=== PATIENT | female | born 1995 | race Caucasian/White ===

== ENCOUNTER 2017-03-01 12:08 | Emergency (ER) | payer OTHER ==
[2017-03-01] MEDS ORDERED: NS 0.9% 1000 ML* 1,000 ML BOLUS SCH (14:15)
[2017-03-01 14:46] LABS: Hematocrit 42 % (35-47); Hemoglobin 13.8 g/dl (12.0-16.0); Mean Corpuscular HGB Conc 33 g/dl (31-36); Mean Corpuscular Hemoglobin 29 pg (27-31); Mean Corpuscular Volume 86 fL (80-97); Mean Platelet Volume 10 um3 (7.4-10.4); Red Blood Count 4.82 10^6/ul (4.0-5.4); Red Cell Distribution Width 13 % (10.5-15); White Blood Count 17.5 10^3/ul (3.5-10.8)
[2017-03-01 15:07] LABS: Albumin 3.9 g/dL (3.2-5.2); BUN/Creatinine Ratio 10.4 (8-20); EGFR African American 140.3 (>60); EGFR Non-African American 109.1 (>60); Globulin 3.6 g/dL (2-4); Potassium 3.6 mmol/L (3.5-5.0); Total Bilirubin 1.7 mg/dL (0.2-1.0); Total Protein 7.5 g/dL (6.4-8.9)
[2017-03-01 15:32] LABS: Urine Bacteria Absent (Absent); Urine Bilirubin Negative (Negative); Urine Glucose Negative (Negative); Urine Nitrite Positive (Negative)
[2017-03-01] MEDS ORDERED: Ketorolac INJ* 30 MG/ML 1 ML VIAL IV PUSH ONE (15:41)
[2017-03-01] MEDS ORDERED: Iohexol 300* (CONTRAST) 10 ML SDV IV ONE (16:00)
--- NOTE | 2017-03-01 17:02 | RAD ---
INDICATION: Evaluate for perineal abscess COMPARISON: CT August 23, 2015 TECHNIQUE: Axial source images were obtained from the hemidiaphragms to the symphysis pubis following administration of oral and intravenous contrast. 105 mL Omnipaque 300 was utilized. Coronal and sagittal reconstructed images were acquired. Lung bases: The lung bases are clear. Liver: The liver is normal in size. There are no masses. There is no ductal dilatation. Gallbladder: There are no calcified gallstones. There is no evidence of wall thickening or pericholecystic fluid. Spleen: The spleen is normal in size. There are no masses. Pancreas: There is no focal pancreatic mass or ductal dilatation. Adrenal glands: There is no evidence of adrenal mass. Kidneys: The kidneys are normal in size and position. There are prompt nephrograms and there is prompt excretion bilaterally. There are no renal parenchymal masses. There is no evidence of nephrolithiasis. Adenopathy: There is no evidence of adenopathy by size criteria. Fluid collections: There are no free or localized fluid collections. Vessels:There are no significant atherosclerotic changes involving the aorta. There is no focal aneurysm. The iliac vessels are normal in caliber. The IVC appears normal. GI tract: There are no acute CT bowel findings. There is no obstruction. The stomach and small bowel appear normal. There is ileostomy reversal. The lower GI tract is normal. The cecum, ileocecal valve, and terminal ileum appear normal. The appendix is visualized and appear normal. Pelvic organs: The uterus and adnexa appear normal Bladder: There are no bladder masses. Abdominal and pelvic soft tissues: There is no evidence of localized abscess. The caudal most images show several small linear foci of air which could represent a fistula is patent with prior repair of a colovaginal fistula. Osseous structures: There are no acute osseous findings. Other: None IMPRESSION: POSSIBLE PERINEAL FISTULOUS TRACT. NO EVIDENCE OF SIGNIFICANT INFLAMMATORY CHANGE AND NO EVIDENCE OF ABSCESS
[2017-03-01 18:47] VITALS: BP 91/68
--- NOTE | 2017-03-01 21:18 | ED ---
Matt Silvestre Thomas, scribed for Berkley Bower MD on 03/01/17 at 1320 . GI/ HPI - HPI Summary HPI Summary: The pt is a 21 y/o F presenting to the ED accompanied by her boyfriend Yo with concerns for a UTI. 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 She had vaginal reconstruction surgery performed at [place] in 2014 that she says was "botched" (she now claims many scars and pockets). 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 The pts symptoms include foul-smelling brownish "vaginal"discharge, hotness to the touch (last night) (subjective fever), diaphoresis (last night), intermittent dull lower back pain (onset two days ago, 5/10), swollen L side of vagina (with no pain, secondary to scarring of surgery), painful walking, and insomnia secondary to the pain. The pt denies abd pain. 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 PSHx: colostomy (no bag currently), renal surgery, vaginal reconstruction surgery ( 2015),. SHx: smoker, occasional drinking, no illicit drugs. The pt states that she went to [facility] urgent care yesterday, where UTI was "ruled out". She has also been taking Azo because she thought she had a UTI. Her physician is Dr. Meggan Wagner, phone number . She did not call her physician today. She does not have genital-genital intimacy with her significant other. She denies recent events that may have triggered the pain. She reports that the pain and discharge did not emerge until a few days after intimacy. In charting I will refer to "vagina", meaning reconstructed, scarred area that has minimal opening with hx of fistula. Office notes from Dr. Wagner reviewed after discussing with Dr. Bernard Rosenthal's nurse, as Dr. Wagner is away, and covering Dr. Das is in surgery. Pt last saw Dr. Wagner in Jul 2016, and was advised she may need a McIndoe procedure and a second opinion from a doctor in [place]. - History of Current Complaint Chief Complaint: EDUrogenitalProblems Time Seen by Provider: 03/01/17 12:29 Stated Complaint: LT FLANK PAIN Hx Obtained From: Patient, Family/Undercoater - boyfriend in room Onset/Duration: Started Days Ago - 4 days, Atraumatic, Still Present Timing: Intermittent - back pain is intermittent Severity: Moderate Current Severity: Moderate Vaginal Bleeding Description: Brownish-Red - discharge from perineal opening in area of attempted vaginal reconstruction Pain Intensity: 5 Location of Pain: Rectal - perineal, left sided Pain Characteristics: Dull - back pain is dull Associated Signs and Symptoms: Positive: Back Pain - intermittent, dull, 5/10, Discharge - orange, foul-smelling, Diaphoresis - last night, Other: - POS: hotness to the touch (last night), swollen L side of vagina (with no pain secondary to scarring of surgery), painful walking, insomnia secondary to pain. Negative: Fever, Abdominal Pain, New Sexual Partner Additional Signs & Symptoms: Positive: Genital Swelling - L side of vagina, Vaginal Discharge Aggravating Factor(s): Nothing Alleviating Factor(s): Nothing - Allergy/Home Medications Allergies/Adverse Reactions: Allergies Allergy/AdvReac Type Severity Reaction Status Date / Time Penicillins Allergy Unknown Verified 03/01/17 12:09 Reaction Details Opiates Allergy Unknown Uncoded 03/01/17 12:09 Reaction Details PMH/Surg Hx/FS Hx/Imm Hx Previously Healthy: No Cardiovascular History: Denies: Hx Myocardial Infarction History: Reports: Other Problems/Disorders - 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 colostomy 1 1/2 yrs ago for fistula between rectum & vagina, done in [place], [place] Hx Anesthesia Reactions: No Infectious Disease History: No Infectious Disease History: Denies: Traveled Outside the [place] in Last 30 Days - Family History Known Family History: Negative: Cardiac Disease, Hypertension, Diabetes - Social History Occupation: Employed Full-time Lives: With Family Alcohol Use: Occasionally Substance Use Type: Reports: None Smoking Status (MU): Light Every Day Tobacco Smoker Review of Systems Positive: Skin Diaphoresis - last night, Other - POS: hotness to the touch ( last night). Negative: Fever Cardiovascular: Negative Respiratory: Negative Negative: Abdominal Pain Positive: discharge - foul-smelling, orange, other - POS: swollen vagina on L side Positive: Other - POS: back pain (intermittent, dull, 5/10, onset two days ago) , painful walking Skin: Negative Neurological: Negative Psychological: Other - POS: insomnia secondary to the pain All Other Systems Reviewed And Are Negative: Yes Physical Exam Triage Information Reviewed: Yes Vital Signs On Initial Exam: Initial Vitals Temp Pulse Resp BP Pulse Ox 98.1 F 119 16 132/87 97 03/01/17 12:09 03/01/17 12:09 03/01/17 12:09 03/01/17 12:03/01/17 12:09 Vital Signs Reviewed: Yes Appearance: Positive: Well-Appearing, Well-Nourished, Pain Distress Skin: Positive: Warm, Skin Color Reflects Adequate Perfusion Head/Face: Positive: Normal Head/Face Inspection Eyes: Positive: Conjunctiva Clear ENT: Positive: Normal ENT inspection Neck: Positive: Supple Respiratory/Lung Sounds: Positive: Clear to Auscultation, Breath Sounds Present , Other - No respiratory distress Cardiovascular: Positive: RRR, Pulses are Symmetrical in both Upper and Lower Extremities, Other - Brisk cap refill. Negative: Rub Abdomen Description: Positive: Nontender, No Organomegaly, Soft. Negative: Bruit, CVA Tenderness (R), CVA Tenderness (L), Distended, Guarding, McBurney's Point Tenderness, Peritoneal Signs, Pulsatile Mass Bowel Sounds: Positive: Present Pelvic Exam: Positive: other - unable to insert speculum. On pt's perineum, there is a small opening with thick bloody and thick purulent drainage, with swelling of the left perineal area Musculoskeletal: Positive: Strength/ROM Intact Neurological: Positive: Sensory/Motor Intact, Alert, Oriented to Person Place, Time, Speech Normal Psychiatric: Positive: Normal - Yaya Coma Scale Coma Scale Total: 15 Diagnostics - Vital Signs Vital Signs Temp Pulse Resp BP Pulse Ox 03/01/17 12:23 97.3 F 118 17 113/70 96 03/01/17 12:09 98.1 F 119 16 132/87 97 - Laboratory Lab Results: Lab Results 03/01/17 03/01/17 03/01/17 Range/Units 14:20 14:20 14:20 WBC 17.5 H (3.5-10.8) 10^3/ul RBC 4.82 (4.0-5.4) 10^6/ul Hgb 13.8 (12.0-16.0) g/dl Hct 42 (35-47) % MCV 86 (80-97) fL MCH 29 (27-31) pg MCHC 33 (31-36) g/dl RDW 13 (10.5-15) % Plt Count 248 (150-450) 10^3/ul MPV 10 (7.4-10.4) um3 Neut % (Auto) 78.9 (38-83) % Lymph % (Auto) 13.8 L (25-47) % [place] % (Auto) 6.1 (1-9) % Eos % (Auto) 0.7 (0-6) % Baso % (Auto) 0.5 (0-2) % Absolute Neuts (auto) 13.8 H (1.5-7.7) 10^3/ul Absolute Lymphs (auto) 2.4 (1.0-4.8) 10^3/ul Absolute Monos (auto) 1.1 H (0-0.8) 10^3/ul Absolute Eos (auto) 0.1 (0-0.6) 10^3/ul Absolute Basos (auto) 0.1 (0-0.2) 10^3/ul Absolute Nucleated RBC 0.01 10^3/ul Nucleated RBC % 0 Sodium 137 (133-145) mmol/L Potassium 3.6 (3.5-5.0) mmol/L Chloride 105 (101-111) mmol/L Carbon Dioxide 24 (22-32) mmol/L Anion Gap 8 (2-11) mmol/L BUN 7 (6-24) mg/dL Creatinine 0.67 (0.51-0.95) mg/dL Est GFR ( Amer) 140.3 (>60) Est GFR (Non-Af Amer) 109.1 (>60) BUN/Creatinine Ratio 10.4 (8-20) Glucose 87 (70-100) mg/dL Lactic Acid 0.7 (0.5-2.0) mmol/L Calcium 9.0 (8.6-10.3) mg/dL Total Bilirubin 1.70 H (0.2-1.0) mg/dL AST 13 (13-39) U/L ALT 11 (7-52) U/L Alkaline Phosphatase 58 (34-104) U/L Total Protein 7.5 (6.4-8.9) g/dL Albumin 3.9 (3.2-5.2) g/dL Globulin 3.6 (2-4) g/dL Albumin/Globulin Ratio 1.1 (1-3) Urine Color Urine Appearance Urine pH (5-9) Ur Specific [place] (1.010-1.030) Urine Protein (Negative) Urine Ketones (Negative) Urine Blood (Negative) Urine Nitrate (Negative) Urine Bilirubin (Negative) Urine Urobilinogen (Negative) Ur Leukocyte Esterase (Negative) Urine WBC (Auto) (Absent) Urine RBC (Auto) (Absent) Ur Squamous Epith Cells (Absent) Urine Bacteria (Absent) Urine Glucose (Negative) 03/01/17 Range/Units 15:12 WBC (3.5-10.8) 10^3/ul RBC (4.0-5.4) 10^6/ul Hgb (12.0-16.0) g/dl Hct (35-47) % MCV (80-97) fL MCH (27-31) pg MCHC (31-36) g/dl RDW (10.5-15) % Plt Count (150-450) 10^3/ul MPV (7.4-10.4) um3 Neut % (Auto) (38-83) % Lymph % (Auto) (25-47) % [place] % (Auto) (1-9) % Eos % (Auto) (0-6) % Baso % (Auto) (0-2) % Absolute Neuts (auto) (1.5-7.7) 10^3/ul Absolute Lymphs (auto) (1.0-4.8) 10^3/ul Absolute Monos (auto) (0-0.8) 10^3/ul Absolute Eos (auto) (0-0.6) 10^3/ul Absolute Basos (auto) (0-0.2) 10^3/ul Absolute Nucleated RBC 10^3/ul Nucleated RBC % Sodium (133-145) mmol/L Potassium (3.5-5.0) mmol/L Chloride (101-111) mmol/L Carbon Dioxide (22-32) mmol/L Anion Gap (2-11) mmol/L BUN (6-24) mg/dL Creatinine (0.51-0.95) mg/dL Est GFR ( Amer) (>60) Est GFR (Non-Af Amer) (>60) BUN/Creatinine Ratio (8-20) Glucose (70-100) mg/dL Lactic Acid (0.5-2.0) mmol/L Calcium (8.6-10.3) mg/dL Total Bilirubin (0.2-1.0) mg/dL AST (13-39) U/L ALT (7-52) U/L Alkaline Phosphatase (34-104) U/L Total Protein (6.4-8.9) g/dL Albumin (3.2-5.2) g/dL Globulin (2-4) g/dL Albumin/Globulin Ratio (1-3) Urine Color Quynh Urine Appearance Clear Urine pH 6.0 (5-9) Ur Specific [place] 1.008 L (1.010-1.030) Urine Protein Negative (Negative) Urine Ketones Negative (Negative) Urine Blood 3+ H (Negative) Urine Nitrate Positive H (Negative) Urine Bilirubin Negative (Negative) Urine Urobilinogen Negative (Negative) Ur Leukocyte Esterase 3+ H (Negative) Urine WBC (Auto) 3+(>20/hpf) H (Absent) Urine RBC (Auto) 2+(6-10/hpf) H (Absent) Ur Squamous Epith Cells Present H (Absent) Urine Bacteria Absent (Absent) Urine Glucose Negative (Negative) Result Diagrams: 03/01/17 14:20 03/01/17 14:20 Lab Statement: Any lab studies that have been ordered have been reviewed, and results considered in the medical decision making process. - CT CT Abd/Pel CT Interpretation: Positive (See Comments) - POSSIBLE PERINEAL FISTULOUS TRACT. NO EVIDENCE OF SIGNIFICANT INFLAMMATORY CHANGE AND NO EVIDENCE OF ABSCESS CT Interpretation Completed By: Radiologist Re-Evaluation - Re-Evaluation First Eval Re-Evaluation Time: 18:30 Change: Unchanged - discussed CT results and labs and urine results with pt, boyfriend and both parents. Advised no abscess and probable fistula, and possible UTI. Advised no immediate surgery necessary, but definite follow up is needed. Will Rx Bactrim and hydrocodone (despite poss allergy, states she can take this with benadryl) and advise off work. GIGU Course/Dx - Course Assessment/Plan: The pt is a 21 y/o F presenting to the ED accompanied by her boyfriend Yo with concerns for a UTI and a "vaginal" discharge. 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 She had vaginal reconstruction surgery performed at [place] in 2014 that she says was botched (she now claims many scars and pockets). She urinates and defecates through two different openings. The pts symptoms include foul-smelling brownish vaginal discharge, hotness to the touch (last night), diaphoresis (last night), intermittent dull lower back pain (onset two days ago, /10), swollen L side of "vagina" (with no pain, secondary to scarring of surgery), painful walking, and insomnia secondary to the pain. The pt denies abd pain. 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 PSHx: colostomy (no bag currently), renal surgery, vaginal reconstruction surgery (2014), hysterectomy. SHx: smoker, occasional drinking, no illicit drugs. The pt states that she went to [facility] urgent care yesterday , where UTI was ruled out. She has also been taking Azo because she thought she had a UTI. Her physician is Dr. Meggan Wagner, phone number . She did not call her physician today. She does not have genital-genital intimacy with her significant other. She denies recent events that may have triggered the pain. She reports that the pain and discharge did not emerge until a few days after intimacy. Bloodwork shows WBC 17.5, Lymph % 13.8, Absolute neuts 13.8, Absolute monos 1.1, total bilirubin 1.70. UA shows specific gravity 1.008, blood 3+, positive nitrate, leukocyte esterase 3+, WBC 3 +, RBC 2+, present squamous cells. CT Abd/Pel reveals POSSIBLE PERINEAL FISTULOUS TRACT. NO EVIDENCE OF SIGNIFICANT INFLAMMATORY CHANGE AND NO EVIDENCE OF ABSCESS. Patients medication reviewed this visit. At 14:13, I discussed the case with Dr. Molina, radiology, who recommends CT Abd/Pel with oral and IV contrast. Patient is diagnosed with UTI and fistula. The pt is also diagnosed with tobacco abuse disorder. Pt is agreeable with this plan. Pt was told to return to the ED if any new or changing symptoms develop. - Diagnoses Differential Diagnoses - Female: Urinary Tract Infection, Vaginitis, Other - vaginal fistula Provider Diagnoses: Tobacco abuse disorder, UTI (urinary tract infection), Fistula - Physician Notifications Discussed Care Of Patient With: Mukesh Molina Time Discussed With Above Provider: 14:13 Instructed by Provider To: Other - I discussed the case with Dr. Molina, radiology, who recommends CT Abd/Pel with oral and IV contrast. I also discussed the case with Dr. Bernard Rosenthal's nurse who knows the patient and advised that Dr. Das, covering Dr. Wagner who is away, is in surgery. Records faxed and reviewed. Discharge - Discharge Plan Condition: Stable Disposition: HOME Prescriptions: HYDROcodone/ACETAMIN 5-325 MG* [[place] 5-325 TAB*] 1 tab PO Q4H PRN #18 tab MDD 6 PRN Reason: Pain Sulfamethox/Trimethoprim DS* [Bactrim DS 800/160 TAB*] 1 tab PO BID #14 tab Patient Education Materials: How to Stop Smoking (ED), Urinary Tract Infection in Women (ED), Hydrocodone/Acetaminophen (By mouth), Sulfamethoxazole/ Trimethoprim (By mouth) Forms: *Work Release Referrals: [facility]ERRAL [Outside] - 2 Days Additional Instructions: A urine culture and wound culture are pending for you. We will notify you if you need further treatment based on these results. Have definite follow up in the next 1-[address] Wagner's office in [place]. RETURN TO THE EMERGENCY DEPARTMENT FOR ANY NEW OR WORSENING SYMPTOMS The documentation as recorded by the Matt webb Thomas accurately reflects the service I personally performed and the decisions made by , Berkley Bower MD.
== END 2017-03-01 18:46 | disposition home or self-care (01) ==
LOC: ED 12:08
DX: N39.0 Urinary tract infection, site not specified (principal); L98.8 Other specified disorders of the skin and subcutaneous tissue; F17.210 Nicotine dependence, cigarettes, uncomplicated
CPT/HCPCS: 36415; 74177; 80053; 81003; 81015; 83605; 85025; 87070; 87086; 87205; 87640; 87641; 99283; J1885; Q9967